=== PATIENT | female | born 1965 | race Caucasian/White ===

== ENCOUNTER 2018-02-13 09:36 | Emergency (ER) | payer OTHER ==
--- NOTE | 2018-02-13 11:21 | RAD ---
Indication: Left wrist injury 3 views of the wrist demonstrates no fracture. No other bone or joint abnormality is identified. IMPRESSION: NO FRACTURE OF THE WRIST IS NOTED.
--- NOTE | 2018-02-13 11:22 | RAD ---
Indication: Right knee pain. 4 views of the right knee demonstrates no fracture. No other bone or joint abnormality is identified. IMPRESSION: No fracture of the right knee is present.
--- NOTE | 2018-02-13 11:22 | RAD ---
Indication: Back pain. Back injury. 5 views of lumbar spine demonstrates vertebral bodies to be normal in height. Disc spaces all well-preserved. Pedicles appear intact. Degenerative changes of the lumbar spine at L5-S1 is noted. IMPRESSION: No fracture of the lumbar spine is noted.
--- NOTE | 2018-02-13 11:23 | RAD ---
Indication: Right hip injury. 2 views of the right hip as well as an AP view of the pelvis demonstrates pelvic ring to be grossly intact. Sacroiliac joints are intact. Hip joint is well-preserved. No fracture of the right hip is noted. IMPRESSION: No fracture of the right hip or pelvis is noted.
--- NOTE | 2018-02-13 11:24 | RAD ---
INDICATION: Left ankle injury. TECHNIQUE: 3 views of the left ankle were obtained. FINDINGS: Soft tissue swelling is noted along the anterolateral aspect of the ankle. No acute fracture is seen. Joint spaces appear maintained. There is calcification present inferior to the medial malleolus in the region of the deltoid ligament consistent with remote injury. IMPRESSION: SOFT TISSUE SWELLING, NO ACUTE FRACTURE IS SEEN.
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
[2018-02-13 14:53] VITALS: BP 153/98
== END 2018-02-13 13:45 | disposition home or self-care (01) ==
LOC: ED 09:36
DX: S63.502A Unspecified sprain of left wrist, initial encounter (principal); S93.402A Sprain of unspecified ligament of left ankle, initial encounter; S83.91XA Sprain of unspecified site of right knee, initial encounter; M25.532 Pain in left wrist; M25.561 Pain in right knee; M25.559 Pain in unspecified hip; M54.5 Low back pain; V13.4XXA Pedal cycle driver injured in collision with car, pick-up truck or van in traffic accident, initial encounter; Y93.55 Activity, bike riding; Y92.410 Unspecified street and highway as the place of occurrence of the external cause
CPT/HCPCS: 70450; 72110; 99283